=== PATIENT | female | born 1975 | race Hispanic/Latino ===

== ENCOUNTER → 2018-06-20 | Day surgery (SDC) | payer OTHER ==
[~2018-06-20] MED LIST: CARAFATE1 GM/10 ML PO; FENTANYL CITRATE/PF 100MCG/2 ML INJ ONE; INSULIN REGULAR, HUMAN 100 UNIT/1 ML 3ML VIAL ONE; INSULIN SC; METOCLOPRAMIDE HCL 10 MG/2ML VIAL ONE; MIDAZOLAM HCL 2 MG/2 ML VIAL ONE; PANTOPRAZOLE SO40 MG PO; PROPOFOL IV EMULSION 10 MG/ML 50 ML VIAL ONE
--- OUTSIDE RECORDS SUMMARY | 2018-06-20 08:48 | XMS REPORT ---
Author Author [facility] Address Unknown Phone Unavailable Care Team Providers Care Legislative Analyst Name Role Phone ANABELLE COULTER Unavailable Unavailable Problems This patient has no known problems. Allergies, Adverse Reactions, Alerts This patient has no known allergies or adverse reactions. Medications This patient has no known medications. Encounters Start Date/Time End Date/Time Encounter Type Admission Type Attending [facility] Facility Care Department Encounter ID 2018-01-28 22:16:56 2018-01-28 22:16:56 Emergency [facility] [id number] 2018-01-22 23:27:11 2018-01-22 23:27:11 Emergency [facility] [id number] 2018-01-22 22:56:02 2018-01-22 22:56:02 [facility] [id number] Results Test Description Test Time Test Comments Text Results Atomic Results Result Comments LIPASE 2018-05-12 05:38:00 LIPASE (BEAKER) (test grpf=054) 30 U/L 8-78 HEPATIC FUNCTION [id number] 05:38:00* Test Item Value Reference Range Comments TOTAL PROTEIN (BEAKER) (test opsa=862) 7.3 gm/dL 6.0-8.3 Specimen slightly hemolyzed ALBUMIN (BEAKER) (test monr=4996) 4.1 g/dL 3.5-5.0 Specimen slightly hemolyzed BILIRUBIN TOTAL (BEAKER) (test yteq=959) 0.4 mg/dL 0.2-1.2 Specimen slightly hemolyzed BILIRUBIN DIRECT (BEAKER) (test ztrl=999) 0.1 mg/dL 0.1-0.5 Specimen slightly hemolyzed ALKALINE PHOSPHATASE (BEAKER) (test qpuz=554) 55 U/L 40-150 AST (SGOT) (BEAKER) (test ehfi=068) 15 U/L 5-34 Specimen slightly hemolyzed ALT (SGPT) (BEAKER) (test ytzy=178) 13 U/L 6-55 Specimen slightly hemolyzed U/S, ABDOMINAL, [id number] 05:36:00Abdomen limited area? Add comment if clarification is needed.->Right upper quadrantReason for exam:->ABDOMINAL PAIN - RUQFINAL REPORT INDICATION: ABDOMINAL PAIN - RUQ COMPARISON: None. TECHNIQUE: Real-time transabdominal mercado scale and color Doppler ultrasound of the abdomen. FINDINGS:Liver: Size: 17.5cm. Echogenicity: Increased hepatic echogenicity Masses/lesions: None. Surface Nodularity: None. Intrahepatic bile ducts: Normal. Common bile duct: 0.3 cm. MPV: 1.0cm. Gallbladder: Stones: None. Sludge: None. Wall thickness: 0.2 cm. The gallbladder lumen is nondistended. Pericholecystic fluid: None. Sonographic Saenz's sign: No sonographic Saenz's sign. Pancreas: Head and uncinate process: Unremarkable. Body and tail: Not well-seen. Right kidney: Size: 10.8 x 4.1 x 5.4 cm. Parenchyma: Normal echogenicity. No cysts. No stones. Hydronephrosis: None. Ascites: None. Regional Vasculature: The visible abdominal aorta, IVC and hepatic veins are patent. Additional findings: None. IMPRESSION: Hepatomegaly with fatty infiltration. Signed: Judi Gallagher Verified Date/Time: 05/12/2018 05:36:58 Reading Location: [address] Reading Room EN, [id number] 05:06:00* Test Item Value Reference Range Comments TEST URINE (BEAKER) (test ybwu=364) Negative BASIC METABOLIC [id number] 03:38:00* Test Item Value Reference Range Comments SODIUM (BEAKER) (test hprf=771) 136 meq/L 136-145 POTASSIUM (BEAKER) (test tlcs=902) 3.7 meq/L 3.5-5.1 CHLORIDE (BEAKER) (test ppix=719) 103 meq/L 98-107 CO2 (BEAKER) (test dojr=737) 24 meq/L 22-29 BLOOD UREA NITROGEN (BEAKER) (test hpnv=580) 17 mg/dL 7-21 CREATININE (BEAKER) (test piye=048) 0.67 mg/dL 0.57-1.25 GLUCOSE RANDOM (BEAKER) (test nkzu=977) 252 mg/dL 70-105 CALCIUM (BEAKER) (test gzxa=534) 9.2 mg/dL 8.4-10.2 EGFR (BEAKER) (test hsnq=3119) 96 mL/min/1.73 sq m ESTIMATED GFR IS NOT ACCURATE CREATININE CLEARANCE IN PREDICTING GLOMERULAR FILTRATION RATE. ESTIMATED GFR IS NOT APPLICABLE FOR DIALYSIS PATIENTS. URINALYSIS W/ [id number] 03:22:00* Test Item Value Reference Range Comments COLOR (BEAKER) (test suvo=046) Light Yellow CLARITY (BEAKER) (test qpwd=779) Clear SPECIFIC GRAVITY UA (BEAKER) (test edqu=385) 1.037 1.001-1.035 PH UA (BEAKER) (test abci=812) 7.0 5.0-8.0 PROTEIN UA (BEAKER) (test dtcu=395) Negative Negative GLUCOSE UA (BEAKER) (test ornu=990) >1000 mg/dL Negative KETONES UA (BEAKER) (test dtyz=007) 10 mg/dL Negative BILIRUBIN UA (BEAKER) (test pgao=170) Negative Negative BLOOD UA (BEAKER) (test dhku=217) Negative Negative NITRITE UA (BEAKER) (test kxdb=036) Negative Negative LEUKOCYTE ESTERASE UA (BEAKER) (test vcbo=511) Negative Negative UROBILINOGEN UA (BEAKER) (test ilqd=256) 0.2 mg/dL 0.2-1.0 RBC UA (BEAKER) (test vwxa=162) < /HPF WBC UA (BEAKER) (test tlkz=363) < /HPF SOURCE(BEAKER) (test pfos=5104) Urine, Voided CBC W/PLT COUNT & AUTO [id number] 03:17:00* Test Item Value Reference Range Comments WHITE BLOOD CELL COUNT (BEAKER) (test edtv=940) 8.3 K/ L 3.5-10.5 RED BLOOD CELL COUNT (BEAKER) (test mwio=142) 4.44 M/ L 3.93-5.22 HEMOGLOBIN (BEAKER) (test vqml=561) 14.4 GM/DL 11.2-15.7 HEMATOCRIT (BEAKER) (test mrqq=166) 41.4 % 34.1-44.9 MEAN CORPUSCULAR VOLUME (BEAKER) (test azov=497) 93.2 fL 79.4-94.8 MEAN CORPUSCULAR HEMOGLOBIN (BEAKER) (test bfhc=269) 32.4 pg 25.6-32.2 MEAN CORPUSCULAR HEMOGLOBIN CONC (BEAKER) (test tuvg=218) 34.8 GM/DL 32.2-35.5 RED CELL DISTRIBUTION WIDTH (BEAKER) (test zqsw=847) 11.9 % 11.7-14.4 PLATELET COUNT (BEAKER) (test azvr=629) 231 K/CU MM 150-450 MEAN PLATELET VOLUME (BEAKER) (test koqd=421) 11.3 fL 9.4-12.3 NUCLEATED RED BLOOD CELLS (BEAKER) (test xtks=830) 0 /100 WBC 0-0 NEUTROPHILS RELATIVE PERCENT (BEAKER) (test fktc=223) 52 % LYMPHOCYTES RELATIVE PERCENT (BEAKER) (test wgto=139) 38 % MONOCYTES RELATIVE PERCENT (BEAKER) (test rjks=673) 8 % EOSINOPHILS RELATIVE PERCENT (BEAKER) (test wfjp=586) 2 % BASOPHILS RELATIVE PERCENT (BEAKER) (test ahyu=140) 1 % NEUTROPHILS ABSOLUTE COUNT (BEAKER) (test hxwf=187) 4.28 K/ L 1.56-6.13 LYMPHOCYTES ABSOLUTE COUNT (BEAKER) (test lntu=596) 3.11 K/ L 1.18-3.74 MONOCYTES ABSOLUTE COUNT (BEAKER) (test nnzx=238) 0.67 K/ L 0.24-0.36 EOSINOPHILS ABSOLUTE COUNT (BEAKER) (test csuv=075) 0.13 K/ L 0.04-0.36 BASOPHILS ABSOLUTE COUNT (BEAKER) (test hejk=258) 0.05 K/ L 0.01-0.08 IMMATURE GRANULOCYTES-RELATIVE PERCENT (BEAKER) (test cgqf=5566) 0 % 0-1
--- OUTSIDE RECORDS SUMMARY | 2018-06-20 08:48 | XMS REPORT | Clinical Summary ---
Author Author [facility] Organization [facility] Address Unknown Phone Unavailable Care Team Providers Care Director News Name Role Phone Andres Gina ALVARADO PCP Allergies No Known Allergies Medications End Date Status Medication Sig Dispensed Refills Start Date Active cetirizine (ZYRTEC) 10 mg Take 1 tablet 30 tablet 0 tabletIndications: URI by mouth at 5 (upper respiratory bedtime infection) nightly. Active blood glucose Use as 1 Kit 0 meterIndications: Type 2 directed.. 6 diabetes mellitus without complication, without long-term current use of insulin Active omeprazole (PRILOSEC) 20 Take 1 60 capsule 0 mg delayed release capsule by 6 capsuleIndications: LUQ mouth daily. pain Active lancets 28 2 times 100 Each 1 gaugeIndications: Type 2 weekly. 6 diabetes mellitus without complication, without long-term current use of insulin Active blood glucose test 2 times 50 Each 3 stripsIndications: Type 2 weekly to 6 diabetes mellitus without test blood complication, without sugar. long-term current use of insulin Active ergocalciferol (VITAMIN Take 1 12 capsule 0 D2) 50,000 unit capsule by 6 capsuleIndications: mouth weekly. Vitamin D deficiency Active cyclobenzaprine Take 1 tablet 30 tablet 0 (FLEXERIL) 10 mg by mouth 6 tabletIndications: Right nightly at leg pain bedtime as needed for Muscle Spasms. Active gabapentin (NEURONTIN) Take 1 90 capsule 0 100 mg capsule by 6 capsuleIndications: Right mouth at leg pain bedtime nightly. Active lisinopril (PRINIVIL) 10 Take 1 tablet 90 tablet 0 mg tabletIndications: by mouth 6 Uncontrolled daily. hypertension, stage 1 Active atorvastatin (LIPITOR) 20 Take 1 tablet 90 tablet 0 mg tabletIndications: by mouth at 6 Mixed hyperlipidemia bedtime nightly. Active glyBURIDE-metFORMIN Take 2 180 tablet 1 (GLUCOVANCE) 5-500 mg per tablets by 6 tabletIndications: mouth 2 times Uncontrolled type 2 daily (with diabetes mellitus without meals). complication, without long-term current use of insulin 01/23/2018 Discontinued clindamycin (CLEOCIN HCL) Take 1 30 capsule 0 300 mg capsule by 8 capsuleIndications: mouth 3 times Swelling of left thumb daily for 10 days. 02/02/2018 clindamycin (CLEOCIN HCL) Take 1 30 capsule 0 300 mg capsule by 8 capsuleIndications: mouth 3 times Swelling of left thumb daily for 10 days. 02/28/2018 metFORMIN (GLUCOPHAGE) Take 1 tablet 60 tablet 0 500 mg tabletIndications: by mouth 2 8 Uncontrolled type 2 times daily diabetes mellitus without (with meals) complication, without for 30 days. long-term current use of insulin Active Problems Problem Noted Date Swelling of left thumb 01/22/2018 Uncontrolled type 2 diabetes mellitus without complication, without 06/02/2016 long-term current use of insulin Left upper quadrant pain 03/04/2016 Type II or unspecified type diabetes mellitus without mention of 08/27/2010 complication, not stated as uncontrolled Dyslipidemia 08/27/2010 uterine fibroid s/p TLH on 03/17/10 06/01/2010 Obesity, unspecified 06/01/2010 Lump or mass in breast: missed breast biopsy 03/2011/02/2009 LUQ abdominal pain Encounters Care Team Description Date Type Specialty Josi Mallory MD Uncontrolled type 2 diabetes mellitus without complication, without long-term current use of insulin (Primary Dx) 01/28/2018 Emergency Emergency Medicine - 01/29/2018 Elvis Hernandez MD Swelling of left thumb (Primary Dx) 01/22/2018 Emergency Emergency Medicine - 01/23/2018 after 06/19/2017 Immunizations Name Dates Previously Given Next Due Ceftriazone 500mg 11/11/2009 Injection Influenza Vaccine 07/07/2014 (Deferred: Patient Refused), 06/16/2014 (Deferred: Patient Refused) PNEUMOCOCCAL 23-VALPS 06/02/2016 VACCINE 25 MCG/0.5 ML INJECTION Pneumoccoccal 08/27/2010 Tdap Tetanus, diphtheria, 06/01/2010 acellular pertussis Vaccine Family History Medical History Relation Name Comments Diabetes Maternal Grandmother Cancer Paternal Aunt breast Diabetes Sister Relation Name Status Comments Brother Alive 1 Daughter Alive 1 Father Alive Maternal Grandfather Maternal Grandmother Mother Alive Paternal Aunt Paternal Grandfather Alive Paternal Grandmother Alive Sister Alive 6 Sister Son Alive 3 Social History Date Tobacco Use Types Packs/Day Years Used Never Smoker Smokeless Tobacco: Never Used Tobacco Cessation: Counseling Given: Yes Alcohol Use Drinks/Week oz/Week Comments No Sex Assigned at Date Recorded Not on file Industry Job Start Date Occupation Not on file Not on file Not on file Travel End Travel History Travel Start No recent travel history available. Last Filed Vital Signs Time Taken Vital Sign Reading 01/29/2018 2:47 AM CDT Blood Pressure 120/70 01/29/2018 2:47 AM CDT Pulse 80 01/29/2018 2:47 AM CDT Temperature 37 C (98.6 F) 01/29/2018 2:47 AM CDT Respiratory Rate 18 01/29/2018 2:47 AM CDT Oxygen Saturation 99% - Inhaled Oxygen - Concentration 01/28/2018 5:37 PM CDT Weight 65.7 kg (144 lb 14.4 oz) - Height - 08/30/2016 9:48 AM CDT Body Mass Index 27.38 Plan of Treatment Health Maintenance Due Date Last Done Comments DM Foot Exam (Yearly) 01/20/2015 01/20/2014 Cervical Cancer Scrn (3 01/06/2017 01/06/2014, 04/18/2010, 04/18/2010, Yrs) Additional history exists DM Retinal Exam (Yearly) 03/18/2017 03/18/2016, 01/20/2014 Breast Cancer Scrn 04/25/2017 04/25/2016, 01/06/2014, 07/10/2008 (Yearly) DM HGBA1C (Yearly) 07/21/2017 07/21/2016, 05/26/2016, 03/20/2016, Additional history exists IMM Influenza Seasonal 03/11/2018 Oct to March (>/=19 yrs) DM Microalbumin Urine 01/29/2019 01/29/2018, 05/26/2016, 05/26/2016, Scrn (Yearly) Additional history exists Procedures Comments Procedure Name Priority Date/Time Associated Diagnosis BMP POC Routine 01/29/2018 2:31 AM CDT UA CHEMISTRIES STAT 01/29/2018 1:19 AM CDT VBG POC Routine 01/29/2018 1:03 AM CDT BMP POC Routine 01/29/2018 12:32 AM CDT BMP POC Routine 01/28/2018 11:02 PM CDT GLUCOSE POC Routine 01/28/2018 5:35 PM CDT XRAY HAND 3 VIEWS MIN STAT 01/22/2018 Swelling of left thumb 11:30 PM CDT GLUCOSE POC Routine 01/22/2018 9:40 PM CDT after 06/19/2017 Results * BMP POC (01/29/2018 2:31 AM CDT) Only the most recent of 3 results within the time period is included. CO2 POC 22Comment: Physician Notified 21 - 32 mmol/L [facility] MAIN-STATION 1 Chloride POC 102 98 - 107 mmol/L [facility] 1 Potassium POC 3.7 3.50 - 5.10 mmol/L [facility] 1 Sodium POC 140 136 - 145 mmol/L [facility] 1 Glucose POC 225 (H) 74 - 106 mg/dL [facility] 1 Urea Nitrogen 10 7 - 18 mg/dL [facility] POC MAIN-STATION 1 Creatinine POC 0.2 (L) 0.6 - 1.3 mg/dL [facility] 1 Calcium Ionized 1.05 (L) 1.15 - 1.29 mmol/L [facility] POC MAIN-STATION 1 Hemoglobin POC 12.9 12.0 - 16.0 g/dL [facility] 1 Hematocrit POC 38.0 37.0 - 47.0 % [facility] 1 GFR, Estimated >60 mL/min/1.73 m2 [facility]IN-[facility]ATION 1 GFR, Estim, >60 mL/min/1.73 m2 [facility] Afr-Am MAIN-STATION 1 Performing Organization Address [facility] Phone Number [facility] MA[facility]ATION 1 * UA CHEMISTRIES (01/29/2018 1:19 AM CDT) Color Yellow [facility] 2 Clarity Clear [facility] 2 Spec [place] >1.035 (H) 1.001 - 1.035 [facility] 2 pH 6.0 5 - 8 [facility] 2 Protein Negative NEG [facility] 2 Glucose 3+ (A) NEG [facility] 2 Ketone Trace (A) NEG [facility] 2 Bilirubin Negative NEG [facility] 2 Nitrate Negative NEG [facility] 2 Urobilinogen <1.0 0.2 - 1.0 EU/dL [facility] 2 Leukocyte Negative NEG [facility] MAIN-STATION 2 Blood Negative NEG [facility] MA[facility] 2 Specimen Urine Performing Organization Address [facility] Phone Number [facility] MA[facility]-STATION 2 * VBG POC (01/29/2018 1:03 AM CDT) pH, Ravi POC 7.37 7.33 - 7.43 [facility] 1 pCO2, Ravi POC 39.5 38.0 - 50.0 mm Hg [facility] 1 pO2, Ravi POC 45 (L) 50 - 75 mm Hg [facility] 1 Base Deficit, 2 [facility] Ravi POC MAIN-STATION 1 HCO3, Ravi POC 22.9 22.0 - 26.0 mmol/L [facility] 1 % Sat, Ravi POC 80 60 - 85 % [facility] MAIN-STATION 1 Lactic Acid, 2.13 (H) 0.4 - 2.0 mmol/L [facility] Ravi POC MAIN-STATION 1 TCO2, RAVI POC 24 21 - 32 mmol/L [facility] MAIN-STATION 1 Performing Organization Address [facility] Phone Number [facility]-STATION 1 * GLUCOSE POC (01/28/2018 5:35 PM CDT) Only the most recent of 2 results within the time period is included. Glucose POC 247 (H) 74 - 106 mg/dL [facility] MAIN-STATION 1 Performing Organization Address [facility] Phone Number [facility] MAIN-STATION 1 * XRAY HAND 3 VIEWS MIN (01/22/2018 11:30 PM CDT) Impressions Performed At IMPRESSION: SMS 1.No acute fracture or malalignment of the left hand. 2.Diffuse soft tissue swelling about the left thumb. This [facility] radiology report is a preliminary resident dictation until finalized by an attending.Changes to this preliminary report may occur in an additional preliminary or finalized version. Dictated By: Pietro Lopez MD, 01/22/2018 11:44 PM I have reviewed the study and agree with the findings in this report. Signed By: Sushil Ivy MD, 01/23/2018 12:46 AM Narrative Performed At EXAM: XR LEFT HAND 3 VIEWS [facility] DATE:01/22/2018 at 11:21 PM. INDICATION: Pain and swelling of left thumb. Swelling of left thumb COMPARISON: None. TECHNIQUE:PA, lateral and oblique hand radiographs DISCUSSION: No acute fracture or malalignment is identified. There is diffuse soft tissue swelling about the left thumb. Procedure Note Interface, Rad/Mammog In - 01/23/2018 12:51 AM CDT EXAM: XR LEFT HAND 3 VIEWS DATE: 01/22/2018 at 11:21 PM. INDICATION: Pain and swelling of left thumb. Swelling of left thumb COMPARISON: None. TECHNIQUE: PA, lateral and oblique hand radiographs DISCUSSION: No acute fracture or malalignment is identified. There is diffuse soft tissue swelling about the left thumb. IMPRESSION IMPRESSION: 1. No acute fracture or malalignment of the left hand. 2. Diffuse soft tissue swelling about the left thumb. This [facility] radiology report is a preliminary resident dictation until finalized by an attending. Changes to this preliminary report may occur in an additional preliminary or finalized version. Dictated By: Pietro Lopez MD, 01/22/2018 11:44 PM I have reviewed the study and agree with the findings in this report. Signed By: Sushil Ivy MD, 01/23/2018 12:46 AM Performing Organization Address City/State/Zipcode Phone Number [facility] after 06/19/2017 Insurance Type Payer Benefit Subscriber ID Effective Phone Address Plan / Dates Group [facility] xxxxxxxxx 2015-P [phone] [address] [facility] [id number] [place] [address] (Home) [place] [address]
--- OUTSIDE RECORDS SUMMARY | 2018-06-20 08:48 | XMS REPORT | Clinical Summary ---
Author Author [facility] Organization [facility] Address Unknown Phone Unavailable Care Team Providers Care Coil Inspector Name Role Phone River Colbert MD PCP Allergies No Known Allergies Medications End Date Status Medication Sig Dispensed Refills Start Date Active IBU 600 mg tablet Take 600 mg 0 by mouth 3 8 (three) times daily as needed. 05/12/2019 Active sucralfate (CARAFATE) 1 Take 1 tablet 40 tablet 0 gram tablet (1 g total) 8 by mouth 4 (four) times daily. 05/12/2019 Active pantoprazole (PROTONIX) Take 1 tablet 20 tablet 0 20 MG tablet (20 mg total) 8 by mouth daily. Active Problems Not on file Encounters Care Team Description Date Type Specialty Myranda Martinez MD Abdominal pain, RUQ (Primary Dx); Nausea; History of diabetes mellitus 05/12/2018 Emergency Emergency Medicine 05/12/2018 Travel after 06/19/2017 Social History Date Tobacco Use Types Packs/Day Years Used Never Smoker Smokeless Tobacco: Never Used Alcohol Use Drinks/Week oz/Week Comments Yes special occasions Sex Assigned at Date Recorded Not on file Industry Job Start Date Occupation Not on file Not on file Not on file Travel End Travel History Travel Start No recent travel history available. Last Filed Vital Signs Time Taken Vital Sign Reading 05/12/2018 5:36 AM EXTRUDER OPERATOR Blood Pressure 125/82 05/12/2018 5:36 AM EXTRUDER OPERATOR Pulse 87 05/12/2018 2:33 AM EXTRUDER OPERATOR Temperature 36.7 C (98.1 F) 05/12/2018 5:36 AM EXTRUDER OPERATOR Respiratory Rate 18 05/12/2018 5:36 AM EXTRUDER OPERATOR Oxygen Saturation 98% - Inhaled Oxygen - Concentration 05/12/2018 2:33 AM EXTRUDER OPERATOR Weight 66.7 kg (147 lb) 05/12/2018 2:33 AM EXTRUDER OPERATOR Height 154.9 cm (5' 1") 05/12/2018 2:33 AM EXTRUDER OPERATOR Body Mass Index 27.78 Plan of Treatment Not on file Procedures Comments Procedure Name Priority Date/Time Associated Diagnosis US ABDOMEN LIMITED STAT 05/12/2018 5:04 AM EXTRUDER OPERATOR HEPATIC FUNCTION PANEL STAT 05/12/2018 4:32 AM EXTRUDER OPERATOR LIPASE STAT 05/12/2018 4:32 AM EXTRUDER OPERATOR CBC W/PLT COUNT & AUTO STAT 05/12/2018 DIFFERENTIAL 2:58 AM EXTRUDER OPERATOR BASIC METABOLIC PANEL (7) STAT 05/12/2018 2:58 AM EXTRUDER OPERATOR CBC W/PLT COUNT & AUTO STAT 05/12/2018 DIFFERENTIAL 2:58 AM EXTRUDER OPERATOR SCREEN, URINE STAT 05/12/2018 2:48 AM EXTRUDER OPERATOR URINALYSIS W/ MICROSCOPIC STAT 05/12/2018 2:48 AM EXTRUDER OPERATOR after 06/19/2017 Results * US abdomen limited (05/12/2018 5:04 AM EXTRUDER OPERATOR) Narrative Performed At FINAL REPORT [facility] INDICATION: ABDOMINAL PAIN - RUQ COMPARISON: None. TECHNIQUE:Real-time transabdominal mercado scale and color Doppler ultrasound of the abdomen. FINDINGS: Liver: Size: 17.5cm. Echogenicity: Increased hepatic echogenicity Masses/lesions: [...] Hepatomegaly with fatty infiltration. Signed: Judi Gallagher MD Report Verified Date/Time:05/12/2018 05:36:58 Reading Location: [facility] Transitional Reading Room Procedure Note Interface, External Ris In - 05/12/2018 5:39 AM EXTRUDER OPERATOR FINAL REPORT INDICATION: ABDOMINAL PAIN - RUQ COMPARISON: None. TECHNIQUE: Real-time transabdominal mercado scale and color Doppler ultrasound of the abdomen. FINDINGS: Liver: Size: 17.5cm. Echogenicity: Increased hepatic echogenicity Masses/lesions: [...] Hepatomegaly with fatty infiltration. Signed: Judi Gallagher MD Report Verified Date/Time: 05/12/2018 05:36:58 Reading Location: [facility] Transitional Reading Room Performing Organization Address City/State/Zipcode Phone Number RIS * Lipase (05/12/2018 4:32 AM EXTRUDER OPERATOR) Lipase 30 8 - 78 U/L [facility] Specimen Blood Performing Organization Address City/[facility]/Zipcode Phone Number [facility] [address] [place] [address] [facility] * Hepatic function panel (05/12/2018 4:32 AM EXTRUDER OPERATOR) Protein, Total 7.3Comment: Specimen slightly 6.0 - 8.3 gm/dL [facility] Albumin 4.1Comment: Specimen slightly 3.5 - 5.0 g/dL [facility] Total Bilirubin 0.4Comment: Specimen slightly 0.2 - 1.2 mg/dL [facility] Bilirubin, Direct 0.1Comment: Specimen slightly 0.1 - 0.5 mg/dL [facility] Alkaline Phosphatase 55 40 - 150 U/L [facility] AST 15Comment: Specimen slightly 5 - 34 U/L [facility] ALT 13Comment: Specimen slightly 6 - 55 U/L [facility] Specimen Blood Performing Organization Address City/State/Zipcode Phone Number [place] [phone] [place] [phone] [facility] * CBC with platelet count + automated diff (05/12/2018 2:58 AM EXTRUDER OPERATOR) WBC 8.3 3.5 - 10.5 K/L [facility] RBC 4.44 3.93 - 5.22 M/L [facility] Hemoglobin 14.4 11.2 - 15.7 GM/DL [facility] Hematocrit 41.4 34.1 - 44.9 % [facility] MCV 93.2 79.4 - 94.8 fL [facility] MCH 32.4 (H) 25.6 - 32.2 pg [facility] MCHC 34.8 32.2 - 35.5 GM/DL [facility] RDW 11.9 11.7 - 14.4 % [facility] Platelets 231 150 - 450 K/CU MM [facility] MPV 11.3 9.4 - 12.3 fL [facility] nRBC 0 0 - 0 /100 WBC [facility] % Neutros 52 % [facility] % Lymphs 38 % [facility] % Monos 8 % [facility] % Eos 2 % [facility] % Baso 1 % [facility] # Neutros 4.28 1.56 - 6.13 K/L [facility] # Lymphs 3.11 1.18 - 3.74 K/L [facility] # Monos 0.67 (H) 0.24 - 0.36 K/L [facility] # Eos 0.13 0.04 - 0.36 K/L [facility] # Baso 0.05 0.01 - 0.08 K/L [facility] Immature 0 0 - 1 % [facility] Granulocytes-Relative [facility] Specimen Blood Performing Organization Address City/State/Zipcode Phone Number [facility] [address] [place] [address] [facility] * Basic Metabolic Panel (05/12/2018 2:58 AM EXTRUDER OPERATOR) Sodium 136 136 - 145 meq/L [facility] Potassium 3.7 3.5 - 5.1 meq/L [facility] Chloride 103 98 - 107 meq/L [facility] CO2 24 22 - 29 meq/L [facility] BUN 17 7 - 21 mg/dL [facility] Creatinine 0.67 0.57 - 1.25 mg/dL [facility] Glucose 252 (H) 70 - 105 mg/dL [facility] Calcium 9.2 8.4 - 10.2 mg/dL [facility] EGFR 96Comment: ESTIMATED GFR IS mL/min/1.73 sq m [facility] NOT ACCURATE CREATININE [facility] CLEARANCE IN PREDICTING GLOMERULAR FILTRATION RATE. ESTIMATED GFR IS NOT APPLICABLE FOR DIALYSIS PATIENTS. Specimen Blood Performing Organization Address City/[facility]/[place] [address] [facility] * Screen, urine (05/12/2018 2:48 AM EXTRUDER OPERATOR) Preg Test, Ur Negative [facility] Specimen Urine - Urine, Voided Performing Organization Address [facility] Phone Number [address] [phone] [facility] * Urinalysis w/Microscopic (05/12/2018 2:48 AM EXTRUDER OPERATOR) Color, UA Light Yellow [facility] Clarity, UA Clear [facility] Specific [place]ba, UA 1.037 (H) 1.001 - 1.035 [facility] pH, UA 7.0 5.0 - 8.0 [facility] Protein, UA Negative Negative [facility] Glucose, UA >1000 mg/dL (A) Negative [facility] Ketones, UA 10 mg/dL (A) Negative [facility] Bilirubin, UA Negative Negative [facility] Blood, UA Negative Negative [facility] Nitrite, UA Negative Negative [facility] Leukocytes, UA Negative Negative [facility] Urobilinogen, UA 0.2 0.2 - 1.0 mg/dL [facility] RBC, UA <1 /HPF [facility] WBC, UA <1 /HPF [facility] Specimen Source Urine, Voided [facility] Specimen Urine - Urine, Voided Performing Organization Address City/State/Zipcode Phone Number [facility] [address] [place] [address] [facility] after 06/19/2017 Insurance Payer Benefit Subscriber ID Type Phone Address Plan / Group [facility] HMO/POS CARE POS [employer] CHO[employer] (Feura Bush) [place] [address]
[2018-06-20 13:00] VITALS: BP 114/78
--- NOTE | 2018-06-20 14:09 | Operative Report ---
DATE OF PROCEDURE: June 20, 2018 REFERRING PHYSICIAN: River Colbert MD PROCEDURE PERFORMED: Esophagogastroduodenoscopy with biopsies. INDICATIONS FOR EGD: Upper abdominal pain, primarily right upper quadrant. MEDICATION: Patient was done under MAC. Please see anesthesiologist's note. PROCEDURE: With the patient in the left lateral decubitus position, the flexible fiberoptic Olympus gastroscope was introduced into the esophagus under direct visualization without any difficulty. There was some patchy erythema noted in the distal esophagus. The scope was then advanced with ease into the stomach. Mucosa overlying the antrum and the body revealed some patchy erythema and low-grade to moderate edema, and biopsies were obtained and sent to stain for H. pylori. Pylorus was of normal contour and shape. It was intubated with ease, and the scope was advanced all the way to the 2nd portion of duodenum. Biopsies were obtained from the proximal 2nd portion and the duodenal bulb to rule out sprue. The scope was then withdrawn back into the stomach and retroflexed. Mucosa overlying the fundus and cardia appeared to be within normal limits. The scope was then straightened out. It was subsequently withdrawn. Patient tolerated the procedure well. IMPRESSION 1. Mild distal esophagitis. 2. Gastritis, biopsied. Biopsies sent to stain for H. pylori. 3. Rule out sprue. PLAN: Follow up histology. Initiate Protonix 40 mg 1 p.o. q.a.m. a.c. Job#: [id number] cc:RIVER COLBERT MD
== END | disposition home or self-care (01) ==
LOC: OR 08:46
PROVIDERS: ATTEND Internal Medicine Gastroenterology
DX: K29.70 Gastritis, unspecified, without bleeding (principal); K20.9 Esophagitis, unspecified; E11.9 Type 2 diabetes mellitus without complications; E66.3 Overweight; Z01.810 Encounter for preprocedural cardiovascular examination; Z79.4 Long term (current) use of insulin; Z68.27 Body mass index [BMI] 27.0-27.9, adult
CPT/HCPCS: 36415; 43239; 82948; 93005; J1817; J2250; J2765